=== PATIENT | male | born 1960 | race Caucasian/White ===

== ENCOUNTER 2017-10-18 09:43 | Emergency (ER) | payer BC ==
[~2017-10-18] VITALS: Ht 172.7 cm; Wt 93.1 kg
[~2017-10-18 09:43] MED LIST: NF34 TOP; PRLSR20 PO; [UNRECOGNIZED DRUG - CODE] TOP
[2017-10-18 09:50] VITALS: TEMP 36.8; Ht 172.7 cm; Wt 93.1 kg
--- NOTE | 2017-10-18 10:48 | DIAGNOSTIC IMAGING REPORT ---
R RIBS UNILATERAL WITH PA CHEST HISTORY: 56 years-old Male R costovertebral pain acute atypical chest pain. Pain is most pronounced within the right costovertebral region. COMPARISON: None available. TECHNIQUE: PA view of the chest with 4 views of the right ribs. FINDINGS: Cardiomediastinal and hilar silhouettes are within normal limits. No pneumothorax, pleural effusion, focal airspace consolidation or overt pulmonary edema. Degenerative changes are seen within the bilateral AC joints. No acute rib fracture identified. IMPRESSION: 1. No acute cardiopulmonary process. 2. No acute rib fracture or pneumothorax identified. The above report was generated using voice recognition software. It may contain grammatical, syntax or spelling errors. Electronically signed by: Allen Peña M.D. 10/18/2017 10:47 AM Dictated Date/Time: 10/18/2017 10:44 AM
[2017-10-18] MEDS ORDERED: PRED50TA PO (11:17)
[2017-10-18 11:30] VITALS: BP 120/78; PULSE 78; O2SAT 98
--- NOTE | 2017-10-20 17:40 | EMERGENCY ROOM VISIT NOTE ---
History First contact with patient: 09:55 Chief Complaint: SHOULDER PAIN Stated Complaint: PAIN IN R SHOULDER History of Present Illness The patient is a 56 year old white male who presents to the Emergency Room with complaints of right posterior shoulder pain that has been ongoing for several months. It has become worse over the last few days. He notes a mass or lump that has been present near his right shoulder blade. It has been present for several years. No specific trauma to the area. He notes that the shoulder has no significant discomfort while he is using it, but has significant pain when he rests. He has difficulty sleeping. He did have prednisone prescribed for him once previously which seemed to help for several months. He has not seen his PCP for this recently. No numbness or tingling. No chest pain. He denies any loss of motion. No other complaints. Review of Systems REVIEW OF SYSTEM: HEENT: No dizziness, visual problems, hearing loss, or tinnitus. There is no difficulty swallowing and no oral lesions are present. PULMONARY: No cough, shortness of breath, sputum production or hemoptysis. CARDIOVASCULAR: No chest pain, palpitations, shortness of breath or peripheral edema. GASTROINTESTINAL: No diarrhea, constipation, nausea, vomiting, or abdominal pain. GENITOURINARY: No dysuria, frequency, urgency or nocturia. NEUROLOGIC: No weakness, muscle tenderness, epilepsy or history of neurological problems. MUSCULOSKELETAL: No history of joint tenderness/swelling. No history of arthritis or arthralgias. SKIN: No rashes or lesions. PSYCHIATRIC: No history of depression or mental illness. ENDOCRINE: No history of diabetes, thyroid disorders, or abnormal hair growth. Past Medical/Surgical History Previous surgeries: None. Medical history: Significant for GERD Family History Noncontributory. Social History Smoking Status: Never Smoker Smokeless Tobacco Use: No Drug Use: none Marital Status: Housing Status: lives with family Occupation Status: employed Current/Historical Medications Scheduled Prednisone (Prednisone), 50 MG PO DAILY Allergies Coded Allergies: No Known Allergies (Unverified , 10/18/17) Physical Exam Vital Signs Date Time Temp Pulse Resp B/P (MAP) Pulse Ox O2 Delivery O2 Flow Rate FiO2 10/18/17 11:30 78 20 120/78 98 10/18/17 09:50 36.8 57 18 148/62 98 Room Air Physical Exam Gen.: Well-developed, well-nourished, middle-aged white male, in no acute distress. Sitting on a bed. Alert and oriented. Skin:Warm and dry with good turgor. No rashes or lesions. No ecchymosis or erythema. The patient is not diaphoretic. No abrasions. Firm palpable mass present over the inferior rhomboid on the right side. It is approximately 4 cm in diameter. It is superficial. Musculoskeletal: Patient has full range of motion of his shoulder including overhead reach. He has focal pain with palpation over the inferior rhomboid and at the edge of the subscapularis. Pain increases with forward protraction and shoulder retraction. No pain associated with Whaley testing, and Neer impingement testing, or supraspinatus testing. No weakness. Full range of motion of the elbow. No defect in the bicep or biceps tendon. He has no pain with palpation over the vertebral bodies or discs spaces. There is some discomfort with palpation over the transverse process of the vertebrae at the level of the mass. Pain extends into his right rhomboid. No palpable defect in the underlying musculature. Neurologic: Gross sensation is intact across the back and upper extremities by soft touch. Heart: Heart RRR. No MGR. Peripheral pulses are 2+. Lungs: Lungs are clear to auscultation. No crackles rhonchi or wheezing. Good air movement. The patient is able to take a deep breath. Medical Decision & Procedures ER Provider Diagnostic Interpretation: Radiographic imaging obtained today of the right ribs was obtained to rule out costovertebral displacement or injury. Thoracic spine is visualized and degenerative changes are noted. No acute abnormality is identified. Films were reviewed by me and read by radiology. ED Course Patient was educated regarding today's findings. Conservative care measures were discussed. Radiographic imaging was obtained of his ribs and costovertebral junction. I find no evidence for bony amount. Likelihood of lipoma, nerve impingement, or muscle strain was discussed. He should follow-up with his orthopedist and discuss musculoskeletal ultrasound to identify the type of tissue within the mass and any underlying muscular abnormality. Tylenol every 6 hours as needed for mild discomfort. Supplement with Aleve 2 tablets twice a day with food. Warm moist compresses to the area may improve his comfort. Prescription was given for a short course of prednisone to alleviate his symptoms. He states this has worked in the past. Follow-up with his PCP for any other concerns. Return to the ED for any acute changes. Medical Decision Possibility of lipoma, muscle tear, abscess, sebaceous cyst, costovertebral disease, rib mass, rotator cuff injury, and cardiac source were considered among others. Impression Primary Impression: Rhomboid muscle strain Departure Information Dispostion Home / Self-Care Condition FAIR Prescriptions Prednisone (Prednisone) 50 Mg Tab 50 MG PO DAILY for 4 Days, #4 TAB Prov: Almas Sanchez,P.A. 10/18/17 Forms HOME CARE DOCUMENTATION FORM, TYLENOL USE, IMPORTANT VISIT INFORMATION Patient Instructions My [facility] Omniture Additional Instructions Aleve 2 tablets twice a day with food Prednisone one pill daily 4 days Gentle stretching daily warm moist compresses to the area may improve comfort Follow-up with your PCP for an orthopedic referral I recommend musculoskeletal ultrasound to identify exactly where your symptoms are generating. Return to the ED for any acute worsening of symptoms Problem Qualifiers Primary Impression: Rhomboid muscle strain Encounter type: initial encounter Qualified Codes: S29.012A - Strain of muscle and tendon of back wall of thorax, initial encounter
== END 2017-10-18 11:31 | disposition home or self-care (01) ==
LOC: C.EDB 09:45 → C.EDA 11:31
DX: S46.811A Strain of other muscles, fascia and tendons at shoulder and upper arm level, right arm, initial encounter (principal); X58.XXXA Exposure to other specified factors, initial encounter